=== PATIENT | female | born 1945 | race Caucasian/White ===

== ENCOUNTER 2022-04-07 17:11 | Emergency (ER) | payer OTHER, BC ==
[~2022-04-07] VITALS: Ht 154.9 cm; Wt 111.6 kg
[2022-04-07 17:18] VITALS: BP_SYST 172
--- NOTE | 2022-04-07 18:33 | NUR ---
Patient to ER bed 08 to gown for evaluation. Side rails up.
--- NOTE | 2022-04-07 19:30 | NUR ---
ED MD AT BEDSIDE. PT RETURNED FROM CT ON [facility]. TOLERATED WELL. PT BIUB DAUGHTER C/O PAIUN ON RIGHTSIDE OF HEAD AND HIP DUE TO A FALL. PT AMBULATES AT HOME WITH A WALKER. PT BROUGHT IN ON FAMILY WHEELCHAIR. PT HAS NO SIGNS OF DISTRESS AT THIS TIME. NO DEFORMITIES SEEN AT THIS TIME. PT IS SPEAKING FULL SENTENCES. PER DAUGHTER, PT IS CURRENTLY BEING TREATED FOR BROINCHITIS TAKING PROMETHAZINE PRESCRIBED. MAKES PT DIZZY. PT IN BED. LOCKIED IN LOW POSITION. SIDE RAIL UP.
[2022-04-07] MEDS ORDERED: IBUP-1969 PO (20:06)
[2022-04-07] MEDS ORDERED: HYDR-3917 PO (20:06)
[2022-04-07 20:18] VITALS: BP_SYST 172
--- NOTE | 2022-04-07 20:21 | NUR ---
Patient given written and verbal discharge instructions and verbalizes understanding. ER MD discussed with patient the results and treatment provided. Patient in stable condition. ID arm band removed. Rx of Hydrocodone/ Ibuprofen given. Patient educated on pain management and to follow up with PMD. Pain Scale 2/10. Opportunity for questions provided and answered. Medication side effect fact sheet provided.
== END 2022-04-07 20:18 | disposition home or self-care (01) ==
LOC: SED 17:11
DX: S00.03XA Contusion of scalp, initial encounter (principal); S40.011A Contusion of right shoulder, initial encounter; R51.9 Headache, unspecified; M25.551 Pain in right hip; Z79.899 Other long term (current) drug therapy; W13.3XXA Fall through floor, initial encounter; Y93.89 Activity, other specified; Y92.89 Other specified places as the place of occurrence of the external cause; Y99.8 Other external cause status
CPT/HCPCS: 70450-TC; 72192-TC; 73030; 76376; 82962; 99284

== ENCOUNTER 2022-08-12 15:00 | Emergency (ER) | payer OTHER, BC ==
[~2022-08-12] VITALS: Ht 154.9 cm; Wt 110.7 kg
[~2022-08-12 15:00] MED LIST: HYDR-3917 PO; IBUP-1969 PO
[2022-08-12 15:09] VITALS: BP_SYST 141
[2022-08-12] MEDS ORDERED: HYDROcodone/ACETAMIN 10-325 MG TAB PO ONE (16:15)
[2022-08-12] MEDS ORDERED: KETOROLAC TROMETHAMINE 30 MG VIAL IM ONE (16:15)
[2022-08-12 16:47] LABS: BASOPHILS # (AUTO) 0.1 K/uL (0.0-0.2); BASOPHILS % (AUTO) 0.6 % (0.0-2.0); EOSINOPHILS # (AUTO) 0.2 K/uL (0.0-0.4); HEMATOCRIT 22.7 % (36-48); HEMOGLOBIN 7.3 g/dL (12.0-16.0); LYMPHOCYTES # (AUTO) 2.1 K/uL (1.0-5.5); LYMPHOCYTES % (AUTO) 25.1 % (20.5-51.5); MEAN CORPUSCULAR HEMOGLOBIN 28 pg (27-31); MEAN CORPUSCULAR HGB CONC 32 % (32-36); MEAN CORPUSCULAR VOLUME 86 fL (79.0-98.0); MONOCYTES # (AUTO) 0.4 K/uL (0.0-1.0); MONOCYTES % (AUTO) 4.9 % (1.7-9.3); NEUTROPHILS # (AUTO) 5.5 K/uL (1.8-7.7); NEUTROPHILS % (AUTO) 67.4 % (40.0-70.0); PLATELET COUNT (AUTO) 437 K/uL (130-430); RED BLOOD CELL COUNT(AUTO) 2.63 MIL/uL (4.2-6.2); WHITE BLOOD COUNT (AUTO) 8.2 K/uL (4.8-10.8)
[2022-08-12 17:07] LABS: ALANINE AMINOTRANSFERASE 18 U/L (12-78); ALBUMIN 2.8 g/dL (3.4-4.8); ANION GAP 5 (5-15); ASPARTATE AMINOTRANSFERASE 23 U/L (10-37); CALCIUM 9.5 mg/dL (8.4-11.0); CHLORIDE 106 mmol/L (98-107); CREATININE 1.09 mg/dL (0.55-1.30); GLUCOSE 161 mg/dL (70-99); TOTAL BILIRUBIN 0.2 mg/dL (0.0-1.0); UREA NITROGEN, BLOOD 27 mg/dL (8-21)
[2022-08-12 17:32] LABS: ACETONE, SERUM NEGATIVE (NEGATIVE)
[2022-08-12] MEDS ORDERED: FERR236T3 PO (18:02)
[2022-08-12] MEDS ORDERED: HYDR-3917 PO (18:02)
[2022-08-12 18:50] VITALS: BP_SYST 154
[2022-08-12] MEDS ORDERED: HYDROcodone/ACETAMIN 10-325 MG TAB ONE (18:54)
[2022-08-12] MEDS ORDERED: KETOROLAC TROMETHAMINE 30 MG VIAL ONE (18:54)
== END 2022-08-12 19:16 | disposition home or self-care (01) ==
LOC: SED 15:00
DX: E11.40 Type 2 diabetes mellitus with diabetic neuropathy, unspecified (principal); M54.2 Cervicalgia; M25.512 Pain in left shoulder; R51.9 Headache, unspecified; Z86.2 Personal history of diseases of the blood and blood-forming organs and certain disorders involving the immune mechanism; Z79.899 Other long term (current) drug therapy
CPT/HCPCS: 99285; 70450; 71045; 80053; 82009; 82550; 85025; 84484; 36415; 93005; 76376; 96372; 83605; J1885

== ENCOUNTER 2022-08-30 13:09 | Inpatient (IN) | payer BC, MEDICAID ==
[~2022-08-30] VITALS: Ht 154.9 cm; Wt 111.1 kg
[~2022-08-30 13:09] MED LIST changes: +FERR236T3 PO
[2022-08-30 13:14] VITALS: BP_SYST 186
--- NOTE | 2022-08-30 13:14 | NUR ---
Placed in room 05 . Placed on cardiac tech, blood pressure machine and pulse oximeter. To gown for exam. Side rails up.
--- NOTE | 2022-08-30 13:15 | NUR ---
RECEIVED PT FROM FELIPE MARTINEZ. ASSUMED CARE.
--- NOTE | 2022-08-30 13:20 | NUR ---
DR GUERRA AT BEDSIDE TO ASSESS PT.
[2022-08-30 13:49] LABS: BASOPHILS # (AUTO) 0.1 K/uL (0.0-0.2); BASOPHILS % (AUTO) 0.7 % (0.0-2.0); EOSINOPHILS # (AUTO) 0.2 K/uL (0.0-0.4); HEMATOCRIT 23.1 % (36-48); HEMOGLOBIN 7.1 g/dL (12.0-16.0); LYMPHOCYTES # (AUTO) 2.5 K/uL (1.0-5.5); LYMPHOCYTES % (AUTO) 25.4 % (20.5-51.5); MEAN CORPUSCULAR HEMOGLOBIN 27 pg (27-31); MEAN CORPUSCULAR HGB CONC 31 % (32-36); MEAN CORPUSCULAR VOLUME 87 fL (79.0-98.0); MONOCYTES # (AUTO) 0.5 K/uL (0.0-1.0); MONOCYTES % (AUTO) 5.5 % (1.7-9.3); NEUTROPHILS # (AUTO) 6.6 K/uL (1.8-7.7); NEUTROPHILS % (AUTO) 66.4 % (40.0-70.0); PLATELET COUNT (AUTO) 440 K/uL (130-430); RED BLOOD CELL COUNT(AUTO) 2.66 MIL/uL (4.2-6.2); RED CELL DISTRIBUTION WIDTH 16.6 % (9.0-15.0)
[2022-08-30 14:02] LABS: ANION GAP 7 (5-15); CALCIUM 9.1 mg/dL (8.4-11.0); CHLORIDE 108 mmol/L (98-107); CREATININE 0.93 mg/dL (0.55-1.30); GLUCOSE 107 mg/dL (70-99); UREA NITROGEN, BLOOD 28 mg/dL (8-21)
[2022-08-30] MEDS ORDERED: iohexoL 350 mgI/mL, 100 ML INFUS..BTL IV ONE (14:03)
--- NOTE | 2022-08-30 14:04 | NUR ---
URINE OBTAINED AND TAKEN TO LAB.
[2022-08-30 14:07] LABS: PROTHROMBIN TIME 9.9 SECS (9.5-12.5)
[2022-08-30 14:13] LABS: ALANINE AMINOTRANSFERASE 18 U/L (12-78); ALBUMIN 2.5 g/dL (3.4-4.8); ASPARTATE AMINOTRANSFERASE 19 U/L (10-37); TOTAL BILIRUBIN 0.2 mg/dL (0.0-1.0)
--- NOTE | 2022-08-30 14:28 | NUR ---
PT TAKEN OFF MONITOR AND TAKEN TO C/T SCAN.
--- NOTE | 2022-08-30 14:55 | NUR ---
COVID AND FLU OBTAINED.
[2022-08-30 15:24] LABS: BILIRUBIN,URINE NEGATIVE (NEGATIVE); BLOOD, URINE NEGATIVE (NEGATIVE); COLOR,URINE YELLOW (YELLOW); GLUCOSE,URINE NEGATIVE (NEGATIVE); KETONES,URINE NEGATIVE (NEGATIVE); LEUKOCYTE ESTERASE ,URINE 2+ (NEGATIVE); NITRITE, URINE POSITIVE (NEGATIVE); PROTEIN URINE TRACE (NEGATIVE); UROBILINOGEN,URINE 0.2 (0.2-1.0)
[2022-08-30 15:30] LABS: CLARITY/URINE HAZY (CLEAR)
[2022-08-30 15:43] LABS: RBC,URINE 0-3 /HPF (0-3)
[2022-08-30 15:44] LABS: BACTERIA,URINE MANY /HPF (None Seen); MUCUS,URINE None Seen /LPF (None Seen)
[2022-08-30] MEDS ORDERED: cefTRIAXone 1 GM VIAL IM ONE (16:00)
[2022-08-30] MEDS ORDERED: NACL 0.9% 1,000 ML IV ONE (16:00)
[2022-08-30] MEDS ORDERED: APIX5TAB4 PO (16:01)
[2022-08-30] MEDS ORDERED: GLIM4TAB PO (16:01)
[2022-08-30] MEDS ORDERED: SIMV-343 PO (16:01)
[2022-08-30] MEDS ORDERED: CALC-823 PO (16:01)
[2022-08-30] MEDS ORDERED: OXYB5TAB16 PO (16:01)
[2022-08-30] MEDS ORDERED: INSU100I20 SQ ×2 (16:01)
[2022-08-30] MEDS ORDERED: NEU300 PO (16:01)
[2022-08-30] MEDS ORDERED: LOSA100T3 PO (16:01)
[2022-08-30] MEDS ORDERED: NAPR-688 PO (16:01)
[2022-08-30] MEDS ORDERED: METO50TA7 PO (16:01)
[2022-08-30] MEDS ORDERED: cefTRIAXone 1 GM IVPB PREMIX 50 ML IV ONE (16:45)
--- NOTE | 2022-08-30 16:57 | NUR ---
SCHEDULED MEDS GIVEN AND TOLERATED WELL.
[2022-08-30] MEDS ORDERED: KETOROLAC TROMETHAMINE 30 MG VIAL IVP ONE (17:30)
[2022-08-30] MEDS: 0.45% NACL 1,000 ML IV SCH (19:00)
--- NOTE | 2022-08-30 20:17 | NUR ---
Admit bed requested Patient will be admitted to care of . Admitted to TELE unit. Diagnosis UTI, DEHYDRATION Inpatient (Yes or No) Y Observation (Yes or No) N Orientation concerns or request close to nursing station (Yes or No) N Covid Status PENDING On vent or bipap N Isolation requirements N Needs a sitter N From Home (Yes or if No enter name of facility) YY Requires Dialysis (Yes or No) N Med Rec Completed (Yes of No) YES
--- NOTE | 2022-08-30 21:53 | NUR ---
ENDORSED ALL CARE TO FELIPE VAN. ALL QUESTIONS AND CONCERNS ADDRESSED.
--- NOTE | 2022-08-30 23:30 | NUR ---
Patient will be admitted to care of [facility] nurse. Admitted to [Medsurg unit. Will go to room [116A]. Belongings list completed - patient only had a short sleeve nightgown and a red blanket. Complete and up to date summary report printed. SBAR report to be given at bedside with opportunity for questions.
--- NOTE | 2022-08-30 23:42 | NUR ---
Patient transfered to the floor 116A via wheelchair. VSS, no c/o pain or distress. Report given by Miranda WANG.
--- NOTE | 2022-08-30 23:53 | NUR ---
PT RECEIVED IN RM, ON TELEMETRY AT THIS TIME. NO DISTRESS NOTED
[2022-08-31] VITALS (7 sets, daily range): BP systolic 132–170
[2022-08-31] MEDS: 0.45% NACL 1,000 ML IV SCH ×2 (00:04→21:40)
--- NOTE | 2022-08-31 06:31 | NUR ---
pt seen face down at 0605, pt stated she got up to use bathroom and fell. she denies any current pain. mild redness noted to left inner thigh bp reading 124/69 hr 60, t 97.7, rr 18. pt denies any dizziness. aox3. will notify MD Addendum: 08/31/22 at 0745 by Finlayson Vamshi, FELIPE WANG INCORRECT NOTE
--- NOTE | 2022-08-31 07:45 | NUR ---
PT RESTING IN BED, NO DISTRESS NOTED OVERNIGHT. REPORT GIVEN TO INCOMING RN
--- NOTE | 2022-08-31 08:00 | NUR ---
Initial notes alert, no slurred speech noted. move all extemities. denies any pain or shortness of breath. call light within reach. enc to call for help as needed.
[2022-08-31] MEDS ORDERED: cefTRIAXone 1 GM IVPB PREMIX 50 ML IV SCH (09:00)
--- NOTE | 2022-08-31 11:00 | NUR ---
MD ROUNDS SEEN BY DR. HILLIARD AT BEDSIDE.
--- NOTE | 2022-08-31 11:45 | NUR ---
B/P BLOOD PRESSURE IS87/44,HR-61 DR. HILLIARD MAKING ROUNDS AND MADE AWARE. MD ORDER TO D/C CARDIZEM AND GIVE GENTLE BOLUS OF NS 300 TOTAL Addendum: 08/31/22 at 1248 by Agueda Yancey RN WRONG ENTRY... INTENDED FOR OTHER PATIENT
--- NOTE | 2022-08-31 12:40 | NUR ---
NEUROLOGY CONSULT RE: SLURRED SPEECH AT HOME WAS TEXTED TO DR Traci CHE.
--- NOTE | 2022-08-31 12:51 | NUR ---
MD ROUNDS SEEN BY DR. CHE AT BEDSIDE
--- NOTE | 2022-08-31 16:00 | NUR ---
Notes- Assisted to bedside commode and had big bowel movement.
[2022-08-31] MEDS: cefTRIAXone 1 GM IVPB PREMIX 50 ML IV SCH (16:52)
--- NOTE | 2022-08-31 18:02 | NUR ---
closing notes Eating dinner, family at bedside. No distress
--- NOTE | 2022-08-31 19:28 | NUR ---
Assumed care of pt, no distress noted at this time
[2022-09-01] VITALS (7 sets, daily range): BP systolic 135–166
--- NOTE | 2022-09-01 01:59 | NUR ---
pt resting in bed, NAD noted. ivf 1/2 NS infusing at 75 ml/hr
--- NOTE | 2022-09-01 04:25 | NUR ---
PT RESTING IN BED, COMPLAINS OF MILD DIZINESS WITH LINEN CHANGE. DENIES SOB OR CHEST PAIN. WILL REASSESS PT
[2022-09-01] MEDS: 0.45% NACL 1,000 ML IV SCH ×2 (11:00→22:57)
[2022-09-01] MEDS ORDERED: CEPH250C PO (13:36)
--- NOTE | 2022-09-01 14:36 | NUR ---
Dietitian Recommendations * [facility] diet * Recommend MVI for nutrient coverage * Prune juice 1xday; RD noted in computrition GS, MPH, RD Please refer to RD Assessment for further details. Thanks! Addendum: 09/01/22 at [address] Amended: Links added.
--- NOTE | 2022-09-01 18:15 | NUR ---
Called Dr. [facility], Dr. Vera electronics research engineer for [place], to get an order to continue home meds.
[2022-09-01] MEDS: cefTRIAXone 1 GM IVPB PREMIX 50 ML IV SCH (18:19)
[2022-09-01] MEDS ORDERED: HYDROcodone/ACETAMIN 5-325 MG TAB (NORCO/ VICODIN) PO PRN (21:30)
[2022-09-01] MEDS ORDERED: NALOXONE HCL 0.4 MG/ML AMP (NARCAN) IVP PRN (21:30)
[2022-09-01] MEDS: OXYBUTYNIN CHLORIDE 5 MG TABLET PO SCH (21:30)
[2022-09-01] MEDS ORDERED: TEMAZEPAM 15 MG CAPSULE PO PRN (21:30)
[2022-09-01] MEDS ORDERED: NON-FORMULARY MEDICATION (Apixaban (Eliquis) 5 MG) PO SCH (21:30)
[2022-09-01] MEDS: METOPROLOL SUCCINATE 50 MG TAB.SR.24H (TOPROL XL) PO SCH (22:55)
[2022-09-02 01:29] VITALS: BP_SYST 157
[2022-09-02 08:08] LABS: ANION GAP 7 (5-15); CALCIUM 8.8 mg/dL (8.4-11.0); CHLORIDE 104 mmol/L (98-107); CREATININE 0.97 mg/dL (0.55-1.30); GLUCOSE 189 mg/dL (70-99); UREA NITROGEN, BLOOD 13 mg/dL (8-21)
[2022-09-02 08:09] LABS: BASOPHILS # (AUTO) 0.1 K/uL (0.0-0.2); BASOPHILS % (AUTO) 1.1 % (0.0-2.0); EOSINOPHILS # (AUTO) 0.1 K/uL (0.0-0.4); EOSINOPHILS % (AUTO) 2.1 % (0.0-4.0); HEMOGLOBIN 7.1 g/dL (12.0-16.0); LYMPHOCYTES # (AUTO) 2.7 K/uL (1.0-5.5); LYMPHOCYTES % (AUTO) 42.5 % (20.5-51.5); MEAN CORPUSCULAR HEMOGLOBIN 27 pg (27-31); MEAN CORPUSCULAR HGB CONC 32 % (32-36); MEAN CORPUSCULAR VOLUME 85 fL (79.0-98.0); MONOCYTES # (AUTO) 0.5 K/uL (0.0-1.0); MONOCYTES % (AUTO) 8.2 % (1.7-9.3); NEUTROPHILS % (AUTO) 46.1 % (40.0-70.0); PLATELET COUNT (AUTO) 376 K/uL (130-430); RED CELL DISTRIBUTION WIDTH 16.5 % (9.0-15.0); WHITE BLOOD COUNT (AUTO) 6.5 K/uL (4.8-10.8)
[2022-09-02 08:29] VITALS: BP_SYST 131
[2022-09-02] MEDS ORDERED: LOSARTAN POTASSIUM 50 MG TABLET (COZAAR) PO SCH (09:00)
[2022-09-02] MEDS ORDERED: SIMVASTATIN 20 MG TABLET PO SCH (09:00)
[2022-09-02] MEDS ORDERED: CALCIUM CARBONATE/VITAMIN D3 1 TAB TABLET PO SCH (09:00)
[2022-09-02] MEDS ORDERED: GLIMEPIRIDE 2 MG TABLET PO SCH (09:00)
[2022-09-02] MEDS ORDERED: INSULIN GLARGINE 100 UNITS/ML, 10 ML VIAL SUBCUT SCH ×2 (09:00→21:00)
[2022-09-02] MEDS ORDERED: INSULIN DETEMIR 32 UNIT SQ SCH (09:00)
[2022-09-02] MEDS: OXYBUTYNIN CHLORIDE 5 MG TABLET PO SCH (09:35)
[2022-09-02] MEDS: METOPROLOL SUCCINATE 50 MG TAB.SR.24H (TOPROL XL) PO SCH (09:36)
[2022-09-02 12:59] VITALS: BP_SYST 140
[2022-09-02 13:36] VITALS: BP_SYST 140
[2022-09-02] MEDS ORDERED: APIXABAN 2.5 MG TABLET PO ONE (13:45)
--- NOTE | 2022-09-02 15:34 | NUR ---
D/C Patient to home via private vehicle, picked up by the daughter and son in law. Patient given medication reconciliation form and D/C instructions. Exit provided. Patient is a/o x4, with forgetfulness noted. Instructed patient and daughter to resume medication for tomorrow in AM. MD discussed with patient the results and treatment provided. Patient in stable condition, ID band removed. IV catheter removed, intact and dressing applied, no active bleeding. Rx of given. Patient educated on pain management. All belongings sent with patient. VSS, afebrile.
[2022-09-02] MEDS ORDERED: INSULIN DETEMIR 30 UNIT SQ SCH (21:00)
[2022-09-03] MEDS ORDERED: APIXABAN 2.5 MG TABLET PO SCH (09:00)
== END 2022-09-02 14:50 | disposition home or self-care (01) | DRG 641 ==
LOC: SED 13:09 → STU 18:54
PROVIDERS: ADMIT Internal Medicine; ATTEND Internal Medicine
PROC: 4A00X4Z Measurement of Central Nervous Electrical Activity, External Approach (ICD-10-PCS; principal; 2022-08-30)
DX: E86.0 Dehydration (principal); G45.9 Transient cerebral ischemic attack, unspecified; N39.0 Urinary tract infection, site not specified; Z68.42 Body mass index [BMI] 45.0-49.9, adult; E87.1 Hypo-osmolality and hyponatremia; I10 Essential (primary) hypertension; Z20.822 Contact with and (suspected) exposure to COVID-19; D64.9 Anemia, unspecified; E78.5 Hyperlipidemia, unspecified; E66.01 Morbid (severe) obesity due to excess calories; E11.42 Type 2 diabetes mellitus with diabetic polyneuropathy; Z79.891 Long term (current) use of opiate analgesic; Z79.899 Other long term (current) drug therapy
CPT/HCPCS: 36415; 70496; 70498; 70551; 71045; 76376; 80048; 80053; 81000; 82550; 82962; 83605; 84484; 85025; 85610-TC; 85730-TC; 87086; 93005; 95816; 96365; 96375; 99285; G0378; J0696; J1815; Q9967

== ENCOUNTER 2023-02-24 15:09 | Emergency (ER) | payer OTHER, MEDICAID ==
[~2023-02-24] VITALS: Ht 157.5 cm; Wt 101.6 kg
[2023-02-24 15:09] VITALS: BP_SYST 119; PULSE 104; RESP 20; TEMP 98.2; O2SAT 98
[~2023-02-24 15:09] MED LIST changes: +APIX5TAB4 PO; +CALC-823 PO; +CEPH250C PO; -FERR236T3 PO; +GLIM4TAB PO; -IBUP-1969 PO; +INSU100I22 SQ; +LOSA100T4 PO; +METO50TA7 PO; +OXYB5TAB16 PO; +SIMV-343 PO
--- NOTE | 2023-02-24 15:09 | NUR ---
Placed in room 02 . Placed on roof slater, blood pressure machine and pulse oximeter. To gown for exam. Side rails up. Report given to FELIPE Sotelo
[2023-02-24] MEDS ORDERED: NACL 0.9% 1,000 ML IV ONE (15:45)
[2023-02-24 16:00] LABS: BASOPHILS % (AUTO) 0.2 % (0.0-2.0); EOSINOPHILS % (AUTO) 0.2 % (0.0-4.0); HEMATOCRIT 26.4 % (36-48); HEMOGLOBIN 8.7 g/dL (12.0-16.0); LYMPHOCYTES # (AUTO) 1.4 K/uL (1.0-5.5); LYMPHOCYTES % (AUTO) 12.8 % (20.5-51.5); MEAN CORPUSCULAR HEMOGLOBIN 31 pg (27-31); MEAN CORPUSCULAR HGB CONC 33 % (32-36); MEAN CORPUSCULAR VOLUME 93 fL (79.0-98.0); MONOCYTES # (AUTO) 0.9 K/uL (0.0-1.0); MONOCYTES % (AUTO) 8.6 % (1.7-9.3); NEUTROPHILS # (AUTO) 8.2 K/uL (1.8-7.7); NEUTROPHILS % (AUTO) 78.2 % (40.0-70.0); PLATELET COUNT (AUTO) 331 K/uL (130-430); RED BLOOD CELL COUNT(AUTO) 2.85 MIL/uL (4.2-6.2); RED CELL DISTRIBUTION WIDTH 16.8 % (9.0-15.0); WHITE BLOOD COUNT (AUTO) 10.5 K/uL (4.8-10.8)
--- NOTE | 2023-02-24 16:00 | NUR ---
ER at bedside examining patient.
--- NOTE | 2023-02-24 16:04 | NUR ---
Pt BIB daughter for possible dehydration Pt states she feels weak IV inserted and IV fluid running VSS Able to make needs known NAD at this time Will continue to monitor
[2023-02-24 16:13] LABS: ANION GAP 9 (5-15); CALCIUM 8.4 mg/dL (8.4-11.0); CHLORIDE 102 mmol/L (98-107); CREATININE 1.28 mg/dL (0.55-1.30); GLUCOSE 188 mg/dL (74-106); UREA NITROGEN, BLOOD 23 mg/dL (8-21)
[2023-02-24 16:18] LABS: ALANINE AMINOTRANSFERASE 15 U/L (12-78); ASPARTATE AMINOTRANSFERASE 18 U/L (10-37); TOTAL BILIRUBIN 0.3 mg/dL (0.0-1.0)
[2023-02-24 18:41] LABS: BILIRUBIN,URINE NEGATIVE (NEGATIVE); BLOOD, URINE 2+ (NEGATIVE); CLARITY/URINE CLOUDY (CLEAR); COLOR,URINE YELLOW (YELLOW); GLUCOSE,URINE NEGATIVE (NEGATIVE); KETONES,URINE NEGATIVE (NEGATIVE); LEUKOCYTE ESTERASE ,URINE 3+ (NEGATIVE); NITRITE, URINE POSITIVE (NEGATIVE); PH,URINE 5.5 (5.0-8.0); PROTEIN URINE 2+ (NEGATIVE)
[2023-02-24 19:09] LABS: BACTERIA,URINE MANY /HPF (None Seen); MUCUS,URINE None Seen /LPF (None Seen); URINE AMORPHOUS URATE 2+ /HPF (None Seen); WBC,URINE >100 /HPF (0-3)
[2023-02-24] MEDS ORDERED: CEFEPIME 1 GM in D5W 50 ML IV ONE (19:15)
--- NOTE | 2023-02-24 19:15 | NUR ---
FIRST CONTACT WITH PT. ASSESSMENT COMPLETED. AWAITING ADDITIONAL EVAL AND ORDERS.
[2023-02-24] MEDS ORDERED: CEFEPIME 1 GM/VIAL (MAXIPIME) ONE (19:42)
[2023-02-24] MEDS ORDERED: NITR-85 PO (20:23)
--- NOTE | 2023-02-24 20:50 | NUR ---
Patient given written and verbal discharge instructions and verbalizes understanding. ER MD JONES discussed with patient the results and treatment provided. Patient in stable condition. ID arm band removed. IV catheter removed intact and dressing applied, no active bleeding. Rx of MACROBID given. Patient educated on pain management and to follow up with PMD. Pain Scale 0 . Opportunity for questions provided and answered. Medication side effect fact sheet provided.
[2023-02-24 20:51] VITALS: BP_SYST 119; PULSE 104; RESP 20; TEMP 98.2; O2SAT 98
--- NOTE | 2023-02-27 15:06 | NUR ---
URINE CULTURE C/S: E.COLI ESBL RX OF MACROBID GIVEN UPON DC BY ER DR. JONES ORGANISM SENSITIVE TO MACROBID REVEIWED WITH ER DR. GUERRA- NO FURTHER ACTION NEEDED
== END 2023-02-24 20:51 | disposition home or self-care (01) ==
LOC: SED 15:09
DX: N39.0 Urinary tract infection, site not specified (principal); R10.30 Lower abdominal pain, unspecified; R31.9 Hematuria, unspecified; R53.1 Weakness; E11.9 Type 2 diabetes mellitus without complications; I10 Essential (primary) hypertension; Z79.4 Long term (current) use of insulin; Z79.899 Other long term (current) drug therapy
CPT/HCPCS: 99284; 96365; 80053; 81000; 85025; 87086; 36415; J0692